=== PATIENT | female | born 1995 | race Caucasian/White ===

== ENCOUNTER 2018-08-17 06:25 | Emergency (ER) | payer OTHER ==
[~2018-08-17] VITALS: Ht 160 cm; Wt 54.4 kg
--- NOTE | 2018-08-17 06:30 | NUR ---
AMBULATED TO ER BED 3
[2018-08-17 06:34] VITALS: BP 117/74
--- NOTE | 2018-08-17 06:44 | NUR ---
PT TO ED WITH C/O MIGRAINE HEADACHE X 1 DAY. PT DENIES N/V AT THIS TIME. NO NEURO DEFECITS NOTED. PT PLACED INTO BED, PENDING MD HARDEN.
[2018-08-17] MEDS ORDERED: KETOROLAC 60 MG/2 ML VIAL IM ONE (07:05)
[2018-08-17] MEDS ORDERED: METOCLOPRAMIDE 10 MG/2 ML INJ VIAL IM ONE (07:05)
--- NOTE | 2018-08-17 07:17 | NUR ---
REPORT TO DUNIA LAMB FOR CONTINUATION OF CARE.
--- NOTE | 2018-08-17 07:21 | NUR ---
REPORT FROM DUNIA ARNDT
--- NOTE | 2018-08-17 08:08 | NUR ---
PT AMBULATED TO RESTROOM AND BACK TO [facility] WITH STEADY GAIT. PT RESTING QUIELTY WITH FRIEND AT BEDSIDE. NAD. CONTINUE TO MONITOR.
--- NOTE | 2018-08-17 08:32 | NUR ---
HEADACHE PAIN DECREASED 06/20, NO N/V.
[2018-08-17 08:33] VITALS: BP 112/74
--- NOTE | 2018-08-17 08:34 | NUR ---
Patient discharged with v/s stable. Written and verbal after care instructions given and explained. Patient alert, oriented and verbalized understanding of instructions. Ambulatory with steady gait. All questions addressed prior to discharge. ID band removed. Patient advised to follow up with PMD. Rx of FIORICET, REGLAN, AND NAPROSYN given. Patient educated on indication of medication including possible reaction and side effects. Opportunity to ask questions provided and answered.
== END 2018-08-17 08:34 | disposition home or self-care (01) ==
LOC: MED 06:25
DX: G43.909 Migraine, unspecified, not intractable, without status migrainosus (principal)
CPT/HCPCS: 96372; 99283; J1885; J2765

== ENCOUNTER 2019-02-10 19:33 | Emergency (ER) | payer OTHER ==
[~2019-02-10] VITALS: Ht 160 cm; Wt 58.1 kg
[2019-02-10 19:38] VITALS: BP 116/68
--- NOTE | 2019-02-10 19:48 | NUR ---
24 Y/O FEMALE PRESENTS TO ED, C/O HEADACHE WITH N/V X2 DAYS. PT STATES HEADACHE IS 7/10 DOES NOT RADIATE, HAS BEEN FEELING CONGESTED WITH DIFFICULTY BREATHING. LUNG SOUNDS BILAT CLEAR. PT DENIES ANY CHEST PAIN. PT HAS NONPRODUCTIVE COUGH, STATES FEELING PRESSURE IN EARS WHILE COUGHING. PT DENIES TAKING ANY MEDICATIONS. PT IS 21 WEEKS , NO VAGINAL BLEEDING/DISCHARGE. PT VSS. ERMD AWARE. WILL CONTINUE TO MONITOR.
--- NOTE | 2019-02-10 20:09 | NUR ---
DR. MUNSON EVALUATING PT AT BEDSIDE
[2019-02-10 20:26] VITALS: BP 116/68
--- NOTE | 2019-02-10 20:26 | NUR ---
Patient discharged with v/s stable by Dr. Obrien. Written and verbal after care instructions given and explained. Patient verbalized understanding. Ambulatory with steady gait. All questions addressed prior to discharge. Advised to follow up with PMD.
== END 2019-02-10 20:26 | disposition home or self-care (01) ==
LOC: MED 19:33
DX: J06.9 Acute upper respiratory infection, unspecified (principal)
CPT/HCPCS: 99281